=== PATIENT | male | born 1970 | race Caucasian/White ===

== ENCOUNTER 2018-05-08 09:21 | Emergency (ER) | payer OTHER ==
[~2018-05-08] VITALS: Ht 177.8 cm; Wt 75.0 kg
[2018-05-08 09:29] VITALS: BP 159/88
[2018-05-08] MEDS ORDERED: HYDROcodone/APAP 5/325 TABLET ONE (09:45)
[2018-05-08] MEDS ORDERED: LIDOCAINE 1%, 10ML INFIL ONE (10:00)
[2018-05-08] MEDS ORDERED: HYDROcodone/APAP 5/325 TABLET PO ONE (10:00)
[2018-05-08] MEDS ORDERED: LIDOCAINE-MPF 1%, 5ML ONE (10:05)
[2018-05-08] MEDS ORDERED: BACITRACIN ZINC OINT 500U/GM, 0.9 GM ONE (11:12)
== END 2018-05-08 11:21 | disposition home or self-care (01) ==
LOC: ED 11:07
DX: S61.042A Puncture wound with foreign body of left thumb without damage to nail, initial encounter (principal); X58.XXXA Exposure to other specified factors, initial encounter; Y93.89 Activity, other specified; Y92.69 Other specified industrial and construction area as the place of occurrence of the external cause; Y99.0 Civilian activity done for income or pay
CPT/HCPCS: 64450; 99283; 99284

== ENCOUNTER 2020-10-28 18:58 | Emergency (ER) | payer SELFPAY ==
[~2020-10-28] VITALS: Ht 177.8 cm; Wt 71.6 kg
[2020-10-28] MEDS ORDERED: IBUPROFEN 600 MG TABLET ONE (19:37)
[2020-10-28] MEDS ORDERED: ACETAMINOPHEN 500 MG TABLET ONE (19:38)
[2020-10-28] MEDS ORDERED: IBUPROFEN 600 MG TABLET PO ONE (20:00)
[2020-10-28] MEDS ORDERED: ACETAMINOPHEN 500 MG TABLET PO ONE (20:00)
[2020-10-28] MEDS ORDERED: SODIUM CHLORIDE 0.9% 1,000ML IVBOLUS ONE ×2 (20:00→21:30)
[2020-10-28 20:17] LABS: BASOPHILS % (AUTO) 0 % (0-1); EOSINOPHILS % (AUTO) 1 % (1-7); LYMPHOCYTES % (AUTO) 17 % (22-44); MEAN CORPUSCULAR HEMOGLOBIN 29.8 pg (27.5-34.5); MEAN CORPUSCULAR HGB CONC 35.1 g/dL (33.2-36.2); MEAN PLATELET VOLUME 7.6 fL (7.4-10.4); MONOCYTES % (AUTO) 12 % (2-9); NEUTROPHILS % (AUTO) 69 % (42-75); PLATELET COUNT 253 x10^3/uL (130-400); RED CELL DISTRIBUTION WIDTH 13.9 % (9.4-14.8)
[2020-10-28 20:29] LABS: ALBUMIN 3.6 g/dL (3.4-5.0); ANION GAP 10 mmol/L (5-15); CALCIUM 8.2 mg/dL (8.5-10.1); CHLORIDE 107 mmol/L (98-107); CREATININE 1.15 mg/dL (0.7-1.3)
[2020-10-28 23:33] VITALS: BP 104/68
== END 2020-10-28 23:49 | disposition home or self-care (01) ==
LOC: ED 21:41
DX: U07.1 COVID-19 (principal); B34.9 Viral infection, unspecified; R11.2 Nausea with vomiting, unspecified; R00.0 Tachycardia, unspecified
CPT/HCPCS: 36415; 71045; 80048; 82040; 83605; 84145; 85025; 87040; 93005; 96360; 96361; 99285; J7030; U0003; U0005